=== PATIENT | female | born 1995 | race Caucasian/White ===

== ENCOUNTER 2019-12-17 11:15 | Outpatient (CLI) | payer MEDICAID, SELFPAY ==
--- NOTE | 2019-12-17 | US_ITS ---
WS: [id number] ULTRASOUND OB COMPLETE TECHNIQUE: Complete ultrasound. CLINICAL INFORMATION: CARE, 2ND TRIMESTER COMPARISON: September 14, 2019 FINDINGS: Cervix measures 5.5 cm Single interuterine gestation is identified with transverse presentation. Placenta is posterior. Placenta grade 0. Normal amniotic fluid volume. cardiac activity: 141 BPM. AGA: 20w0d JAY by ultrasound: 05/05/2020 Estimated weight: 341 g BDP: 4.4 cm = 19w3d HC: 17.1 cm = 19w5d AC: 15.1 cm = 20w2d FEMUR LENGTH: 3.3 cm = 20w2d Anatomic survey: Anatomic survey is normal. Normal stomach. Kidneys and bladder are normal. Normal 3 vessel cord. Norm al 3 vessel cord insertion. Normal 4 chamber heart. Normal spine. Intracranial contents are normal. N ormal posterior fossa and cisterna magna. US/US OB >= 14 weeks fetus [id number] IMPRESSION: 1. Single intrauterine with visualized cardiac activity. AGA 20 week s 0 days with JAY 05/05/2020. 2. Placenta is posterior. No evidence of abruption or previa. 3. anatomic survey is normal. 4. Normal amniotic fluid volume.
== END 2019-12-17 11:16 | disposition home or self-care (01) ==
LOC: RADOUTREAD 12-18 07:20
PROVIDERS: Family Provider Nurse Practitioner Family; PCP Nurse Practitioner Family; Visit Provider Family Medicine
DX: Z76.89 Persons encountering health services in other specified circumstances (principal)

== ENCOUNTER 2020-04-25 10:55 | Inpatient (IN) | payer MEDICAID, SELFPAY ==
[2020-04-25] VITALS (93 sets, daily range): BP systolic 0–122; BP diastolic 0–71; PULSE 77–191; TEMP 36.6–37; O2SAT 76–100; BMI 31.5
--- NOTE | 2020-04-25 11:05 | PC.NURSE ---
Pt arrived to floor from Dr Negrete office for evaluation and admit of ROM while at office. While pt at nurses station and being checked in per this nurse shortly after being asked address pt started taking off jacket and then fell to floor. This nurse quickly came around deck to evaluated pt and call for help. It was noticed that the pt had gum in her mouth and this nurse was asking pt to spit gum out so she would not become choked on it. Pt was noted to be breathing and moving but was not coherent, within a few seconds she started following commands and was alert. Pt denied hitting head or having pain from fall. After pt was alert she felt that she could safely walk to room with assistance. This nurse then assisted pt to room and to bed without difficulties. Pt was then given orange juice and a sandwich and stated that she was feeling much better.
[2020-04-25 12:12] LABS: Basophils % 0.3 %; Eosinophils # 0.2 10^3/uL (0.0-0.8); Eosinophils % 1.2 %; Hematocrit 31.9 % (37.0-47.0); Hemoglobin 10.2 g/dL (11.5-15.3); Lymphocytes # 2.6 10^3/uL (0.8-4.8); Lymphocytes % 19.3 %; Mean Corpuscular Volume 93.8 fL (81-99); Monocytes # 0.8 10^3/uL (0.2-0.9); Monocytes % 6.2 %; Neutrophils # 9.8 10^3/uL (1.8-7.7); Neutrophils % 72.6 %; Nucleated Red Blood Cells % 0 %; Platelet Count 203 10^3/cmm (130-400); Red Cell Distribution Width 13.3 % (12.1-15.1); White Blood Count 13.5 10^3/uL (4.0-10.0)
[2020-04-25] MEDS: dextrose 5%-lactated ringers 1,000 ML 125 ML IV (16:56)
[2020-04-25] MEDS: oxytocin 30 UNIT/500 ML BAG IV (17:05)
[2020-04-25] MEDS: lactated ringers 1,000 ML 999 ML IV ×3 (18:02→23:47)
--- NOTE | 2020-04-25 19:39 | ANES.PREANE2 ---
Pre-Anesthetic Assessment Pre-Anesthetic Assessment: Height/Weight: Height 1.55 m Weight 75.75 kg Temp Pulse BP Pulse Ox 98.3 F 101 H 109/40 99 04/25/20 15:30 04/25/20 19:36 04/25/20 19:36 04/25/20 19:34 Preop Diagnosis: IUP Proposed Procedure: MONICA Was Beta Bib taken within 24 hours: N/A (1200) Social: Social History: No alcohol and No tobacco Exam: Pre-Anes Outpt Exam: alert, oriented x 3, clear to auscultation bilaterally and regular rate & rhythm Airway: Submandibular: WNL Cervical ROM: WNL MP: 2 Dentition: Full History/ROS: No significant history except as noted and No significant complaints Pulmonary: Pulmonary: None reported CV/HEM: CV/HEM: None reported : : None reported Hepatic: Hepatic: None reported GI: GI: None reported Metabolic: Metabolic: None reported Musc/skel: Musc/skel: None reported Neuropsych: Neuropsych: None reported Anesthetic Plan: ASA status: 2 Anesthesia: Anesthesia Evaluation and Regional (specify below) Other: MONICA Risk of > 500 ml blood loss (7ml/kg in children): No Meds/Allergies Current Medications: Current Medications Generic Name Dose Route Start Last Admin Trade Name Freq PRN Reason Stop Dose Admin Dextrose/Lactated Ringer's 1,000 mls @ 125 m ls/hr 04/25/20 12:00 04/25/20 18:02 Dextrose 5%-Lact ated Ringers IV 0 mls/hr .Q8H SULMA Infusion Oxytocin 30 unit in 500 ml s @ 1 mls/hr 04/25/20 16:30 04/25/20 17:35 Pitocin IV 6 milliunit/min .Q24H SULMA 6 mls/hr Titration Protocol 1 MILLIUNIT/MIN Lactated Ringer's 1,000 mls @ 999 m ls/hr 04/25/20 17:39 04/25/20 19:09 Lactated Ringers IV 999 mls/hr .Q1H1M PRN Administration ANESTHESIA PFSH Anesthesia Female Reproductive History: : 5 Data Anesthesia CBC & Chem 7: 04/25/20 11:45 Other Labs: Laboratory Results - last 48 hr 04/25/20 11:45 WBC 13.5 H RBC 3.40 L Hgb 10.2 L Hct 31.9 L MCV 93.8 MCH 30.0 MCHC 32.0 RDW 13.3 Plt Count 203 MPV 11.0 H Neut % (Auto) 72.6 Lymph % (Auto) 19.3 Carroll % (Auto) 6.2 Eos % (Auto) 1.2 Baso % (Auto) 0.3 Neut # (Auto) 9.8 H Lymph # (Auto) 2.6 Carroll # (Auto) 0.8 Eos # (Auto) 0.2 Baso # (Auto) 0.0 Nucleated RBC % (auto) 0 Nucleated RBCs # 0.0 Cardiac Studies: No Data to Display
--- NOTE | 2020-04-25 19:41 | ANES.PROC ---
Anesthesia Procedures Procedure/Date: 04/25/20 MONICA Procedure Narrative: Epidural: Time Out Performed: Yes Consents Signed: Procedure Consent Consent: requested by attending/covering physician, from patient, risks and benefits reviewed and patient agrees to proceed Lumbar Level: L2-L3 Epidural position: sitting Epidural procedure: sterile prep of area, 1% lidocaine to numb the area, 18 g needle, neg for paresthesia, test dose given, 1.5% xylocaine 1:200k epi, 0.2% Ropivacaine bolus ml, placed PCEA, no systemic response, sterile dressing applied, L.U.D. no apparent complications and 0.2% Ropiavacaine @ mls/hr Additional Comments: RENAE at 6cm. Roiv 0.2% 5cc and Fent 100 mcg bolus
--- NOTE | 2020-04-25 20:52 | ANES.PROC ---
Anesthesia Procedures Procedure/Date: 04/25/20 Other Information: Ephedrine 50 mg IM right hip for recent occas BPs in 70s systolic. Epidural pump on hold for 30 minutes
--- NOTE | 2020-04-25 23:43 | PM.OBGYHP ---
Providers/Chief Complaint Admitting Physician: Peter Negrete MD Primary Care Provider: Derek Markham Chief Complaint: Rupture of membranes HPI FINGERNAIL SCULPTURER History of Present Illness Karen Steve is a 25 year old female 39-week multigravida female who presented to the hospital today with spontaneous rupture membranes. She was seen in my clinic today. And I checked her and stripped her membranes. Shortly after stripping her membranes. She did have spontaneous rupture of membranes. Meconium was noted. The patient has had a history of a . She desired a TOLAC. She presented to the hospital where a Winkler bulb was placed due to her unfavorable cervix. She was also ultimately placed on Pitocin. She progressed to 4 cm. The baby continued to have recurrent decelerations. As result an IUPC was placed. An amnioinfusion was performed. Despite these interventions, the baby continued to have decelerations, including late decelerations. As result of the patient's lack of cervical change, Present Details : 5 Para: 4 Labs Rubella: Immune RPR: Negative GBS: Negative Medications/Allergies Home Medications Medication Instructions Recorded Confirmed Last Taken Type URI427-ocllghe fumarate-FA 1 tab PO DAILY 04/25/20 04/25/20 04/25/20 06:00 History [] Allergies Allergy/AdvReac Type Severity Reaction Status Date / Time No Known Allergies Allergy Verified 04/25/20 19:30 Vitals/I&O/Wt Last Vital Signs Temp 98.3 F 04/25/20 15:30 Pulse 96 04/25/20 23:33 BP 0/0 04/25/20 23:41 Pulse Ox 76 L 04/25/20 21:23 04/25/20 04/25/20 04/26/20 14:59 22:59 06:59 Intake Total 1139.0 / 1139.0 Balance 1139.0 / 1139.0 Weight last 48 hrs Weight 167 lb Physical Exam Const: COMMON NORMALS: no acute distress and patient oriented x3 GENERAL APPEARANCE: cooperative, comfortable and well developed HENMT: COMMON NORMALS: normocephalic and moist oral mucous membranes HEAD & SCALP: normocephalic Chest: COMMONS NORMALS: normal inspection of the chest Resp: COMMON NORMALS: normal respiratory effort and clear to auscultation bilaterally AUSCULTATION: clear to auscultation bilaterally Cardio: COMMON NORMALS: regular rate, regular rhythm, No gallops present (Cardio), No murmurs present (Cardio) and No rub (Cardio) RATE: regular rate RHYTHM: regular rhythm Extremity: COMMON NORMALS: normal to inspection Neuro: COMMON NORMALS: patient oriented x3 and no focal motor deficits Skin: COMMON NORMALS: no rashes or lesions noted GENERAL SKIN EXAM: no rashes or lesions noted Urinary Catheter Management^: Winkler: Cath Placed During This Visit: yes Urinary Catheter Date of Insertion: 04/25/20 Urinary Catheter Time of Insertion: 20:30 Data : 04/25/20 11:45 A&P Assessment and plan (1) 39 weeks gestation of : Status: Acute (2) History of : Status: Acute (3) Failed trial of labor following previous , antepartum: We discussed the risks and alternatives. Given the recurrent decelerations of the 's heart tones, as well as the lack of progress, I discussed with them my feeling that the benefits of proceeding with a outweigh the risks. We discussed the risk of bleeding, infection, and damage to intra-abdominal organs. Both the patient and her had no further questions and were agreeable to proceed with a . Status: Acute (4) Non-reassuring heart tones complicating , antepartum: Status: Acute Attestations Medical Necessity Statement*: I anticipate routine and post care. Coding Level of Care Code Acute Center Machine Set Up Operator for Melly Fwd Diagnoses 39 weeks gestation of Z3A.39 History of Z98.891 Failed trial of labor following previous , antepartum O66.41 Non-reassuring heart tones complicating , antepartum O36.8390
[2020-04-25] MEDS: metoclopramide 5 mg/mL SDV 2 mL 10 MG IVP (23:46)
[2020-04-25] MEDS: famotidine 20 mg/2 mL INJ IVP (23:46)
[2020-04-25] MEDS: citric acid-sodium citrate 30 mL UDC PO (23:47)
[2020-04-26] VITALS (19 sets, daily range): BP systolic 61–116; BP diastolic 32–71; PULSE 109–135; RESP 16–20; TEMP 37–37.7; O2SAT 96–99
--- NOTE | 2020-04-26 01:01 | PM.OP ---
Operative Report Date of procedure: April 26, 2020 Pre-op Diagnosis: IUP, Nonreassuring heart tones Post-op diagnosis: same Procedure Done: Lower transverse section Specimens removed/disposition: Female with a weight of 4 pounds 13 ounces and Apgars of 9 and 9 Placenta with a three-vessel cord delivered intact Surgeon: Peter Negrete Anesthesia: Epidural Estimated blood loss (mL): 800 Disposition: floor Procedure: The patient was brought back to the operating room where she was prepped and draped in the usual sterile fashion. Anesthesia was found to be adequate. A lower transverse skin incision was then made with a #10 blade. I then dissected down to the underlying subcutaneous tissue until arriving at the prerectal fascia. The fascia was then nicked with the scalpel bilaterally. The fascial incisions were then carried laterally with Fritz scissors. Attention was then turned to the superior aspect of the incision which was grasped with kochers and tented up away from the underlying rectus abdominis muscles. The muscles were then dissected away from the fascia manually, and later with Fritz scissors. Attention was then turned to the inferior aspect of the incision, and the fascia was dissected away from the underlying muscle in similar fashion. The rectus abdominis muscles were then spread manually. The peritoneum was entered manually. Excellent visualization of the uterus was noted. A lower transverse uterine incision was then made with a #10 blade. Upon arriving at the intrauterine cavity, the uterine incision was then extended manually. The was noted to be in vertex position. The baby was delivered without difficulty. After delivery of the head, the mouth and nose were suctioned at the site of the incision. Thick meconium was noted. There was a body cord x1. The remainder of the body was then delivered and placed on the abdomen. The cord was cut and clamped. The baby was then handed to the waiting nurse. The placenta was removed intact. The uterus was externalized. The intrauterine cavity was cleansed of any remaining debris. The uterine incision was reapproximated in 2 layers. The first layer was performed with 0 Vicryl in a running locked stitch. The second layer was an imbricating stitch also using 0 Vicryl. The uterus was replaced into the abdomen. The peritoneum was then irrigated with warm saline. I reexamined the uterine incision and found it to be hemostatic. The rectus abdominis muscles were then reapproximated using 0 Vicryl in a running stitch. The fascia was then reapproximated using 0 Vicryl in running stitch. A subcutaneous running stitch was then performed with 0 Vicryl the skin was reapproximated using michael. A sterile dressing was placed. All counts were correct x2. Both the mother and baby were in stable condition.
[2020-04-26] MEDS: acetaminophen 325 mg Tablet 650 MG PO (04:22)
[2020-04-26] MEDS: sodium chloride 0.9% 1,000 ML 999 ML IV (04:22)
[2020-04-26] MEDS: ketorolac 30 mg/mL INJ IVP ×2 (06:08→10:04)
[2020-04-26] MEDS: diphenhydrAMINE 50 mg/mL SDV 1mL 25 MG IVP (06:34)
[2020-04-26 06:40] LABS: Basophils % 0.2 %; Eosinophils % 0.1 %; Lymphocytes # 0.9 10^3/uL (0.8-4.8); Lymphocytes % 5.6 %; Mean Corpuscular Hemoglobin 30.4 pg (28.0-34.0); Mean Corpuscular Volume 95.1 fL (81-99); Mean Platelet Volume 11.2 fL (7.4-10.4); Monocytes # 0.8 10^3/uL (0.2-0.9); Monocytes % 4.7 %; Neutrophils # 14.6 10^3/uL (1.8-7.7); Neutrophils % 88.9 %; Nucleated Red Blood Cells % 0 %; Platelet Count 142 10^3/cmm (130-400); Red Blood Count 2.63 10^6/uL (4.1-5.3); Red Cell Distribution Width 13.4 % (12.1-15.1); White Blood Count 16.5 10^3/uL (4.0-10.0)
[2020-04-26] MEDS: dextrose 5%-lactated ringers 1,000 ML 125 ML IV (08:30)
[2020-04-26] MEDS: lanolin oint 7 gm 1 APPLIC TOPICAL (10:03)
[2020-04-26] MEDS: ferrous sulfate EC 325 mg Tablet PO ×2 (10:03→17:16)
[2020-04-26] MEDS: prenatal vitamin Capsule 1 CAP PO (10:03)
[2020-04-26] MEDS: docusate sodium 100 mg Capsule PO ×2 (10:04→17:16)
[2020-04-26] MEDS: HYDROcodone-acetaminophen 5-325 mg Tablet PO ×2 (13:30→17:16)
[2020-04-26 15:28] LABS: Hematocrit 24.4 % (37.0-47.0); Hemoglobin 7.8 g/dL (11.5-15.3); Mean Corpuscular Hemoglobin 30.7 pg (28.0-34.0); Mean Corpuscular Volume 96.1 fL (81-99); Mean Platelet Volume 11.7 fL (7.4-10.4); Platelet Count 137 10^3/cmm (130-400); Red Blood Count 2.54 10^6/uL (4.1-5.3); Red Cell Distribution Width 13.6 % (12.1-15.1)
[2020-04-27] MEDS: HYDROcodone-acetaminophen 5-325 mg Tablet PO ×2 (00:57→08:39)
[2020-04-27 04:30] VITALS: BP 100/66; PULSE 108; RESP 18; TEMP 36.8
[2020-04-27 06:00] LABS: Hematocrit 25.7 % (37.0-47.0); Hemoglobin 8.2 g/dL (11.5-15.3); Mean Corpuscular HGB Conc 31.9 g/dL (30.0-36.0); Mean Corpuscular Hemoglobin 30.6 pg (28.0-34.0); Mean Corpuscular Volume 95.9 fL (81-99); Mean Platelet Volume 11.7 fL (7.4-10.4); Platelet Count 169 10^3/cmm (130-400); Red Blood Count 2.68 10^6/uL (4.1-5.3); Red Cell Distribution Width 13.7 % (12.1-15.1); White Blood Count 12.8 10^3/uL (4.0-10.0)
--- NOTE | 2020-04-27 06:48 | PM.OBGYDC ---
Discharge Providers SALES FLOOR ASSOCIATE Date of Admission: 04/25/20 10:55 Date of Discharge: 04/27/20 Attending Provider at Admission: Peter Negrete MD Attending Provider at Discharge: Peter Negrete MD Primary Care Provider: Derek Markham Diagnoses at Discharge Discharge Diagnosis (1) 39 weeks gestation of : Status: Acute (2) History of : Status: Acute (3) Failed trial of labor following previous , antepartum: Status: Acute (4) Non-reassuring heart tones complicating , antepartum: Status: Acute Reason for Visit Reason for Visit: Rupture of membranes Hospital Course Hospital Course: The patient is a 25-year-old multigravida female who presented to the hospital with spontaneous rupture of membranes at 39 weeks estimated gestational age. She attempted a . She was induced with a Winkler bulb which was then followed by Pitocin. She progressed to 4 cm. Her baby began having frequent late decelerations. A was performed. Her course was unremarkable. She had minimal bleeding. She breast-fed well. Her pain was well controlled. Information Peripartum Data: Infant Delivery Method: Section Physical Exam Narrative: EXAM NARRATIVE: and she was delivered per section.She is in no acute distress Lungs are clear auscultation bilaterally Her heart has a regular rate and rhythm Her fundus is below the umbilicus and firm Her dressing is clean, dry and intact Her extremities have trace edema Urinary Catheter Management^: Winkler: Cath Placed During This Visit: yes Reason for Continuing Indwelling Catheter: Perioperative Use in Selected Surgeries Urinary Catheter Date of Insertion: 04/25/20 Urinary Catheter Time of Insertion: 20:30 Discharge Data Data Completed and Pending: Pending at discharge Category Date Time Status CBC Manual Dif [C omplete Blood Coun t w/Man Dif] Routi ne Lab 04/27/20 04:40 Results Labs from last 24 hours 04/27/20 04/26/20 04:40 14:40 WBC 12.8 H 15.0 H RBC 2.68 L 2.54 L Hgb 8.2 L 7.8 L Hct 25.7 L 24.4 L MCV 95.9 96.1 MCH 30.6 30.7 MCHC 31.9 32.0 RDW 13.7 13.6 Plt Count 169 137 MPV 11.7 H 11.7 H Vitals: Last Vital Signs Temp 98.3 F 04/27/20 04:30 Pulse 108 H 04/27/20 04:30 Resp 18 04/27/20 04:30 BP 100/66 04/27/20 04:30 Pulse Ox 97 04/26/20 22:00 Discharge Plan Discharge Patient Disposition: Home, Self-Care Condition: Stable Prescriptions: New ibuprofen 800 mg Tablet 800 mg PO TID Qty: 45 RF: 0 hydrocodone-acetaminophen 5-325 mg Tablet 1 - 2 tab PO Q6H PRN (Reason: Moderate To Severe Pain) Qty: 30 RF: 0 Continued 28-800 mg-mcg Tablet 1 tab PO DAILY RF: 0 Discharge Orders: Discharge Order (Routine); Ordered 04/27/20 Ordered By: Peter Negrete Referrals: Peter Negrete MD [Physician] - 4-7 days (6 weeks for check as well) Discharge Diet: Usual diet Discharge Activity: Limit activity as instructed Discharge Attestations SALES FLOOR ASSOCIATE Time Spent in Discharge Care*: less than 30 min Coding Level of Care Code Acute Plant Sprayer for Chg Fwd Diagnoses 39 weeks gestation of Z3A.39 History of Z98.891 Failed trial of labor following previous , antepartum O66.41 Non-reassuring heart tones complicating , antepartum O36.8390
[2020-04-27 07:09] LABS: Absolute Segmented Neutrophil 11.2 10/cmm (1.6-7.1); Band Neutrophils Absolute 0.8 10^3/cmm (0.0-1.2); Lymphocytes 6 %; Platelet Estimate Normal (Normal); Segmented Neutrophils 88 %; Total Cells Counted 100 (0-100)
[2020-04-27] MEDS: prenatal vitamin Capsule 1 CAP PO (08:40)
[2020-04-27] MEDS: ferrous sulfate EC 325 mg Tablet PO (08:40)
[2020-04-27] MEDS: docusate sodium 100 mg Capsule PO (08:40)
[2020-04-27 10:45] VITALS: BP 94/48; PULSE 114; RESP 18; TEMP 37.2; O2SAT 94
--- NOTE | 2020-04-27 11:46 | ANE.PACU2 ---
Inpatient post-anesthesia follow up: Airway intact: Yes Vital signs: Temperature 98.9 F Pulse Rate 114 Respiratory Rate 18 Blood Pressure 94/48 Pulse Oximetry 94 Oxygen Delivery Me thod Room Air Oxygen Flow Rate Fraction of Inspir ed Oxygen Hydration adequate: Yes Nausea and vomiting: No Mental status: Baseline Additional Comments: no signs of infection at epidural site, no LE weakness, no headaches
== END 2020-04-27 13:00 | disposition home or self-care (01) | DRG 788 ==
PROVIDERS: Admitting Provider Family Medicine; Family Provider Nurse Practitioner Family; PCP Nurse Practitioner Family; Visit Provider Family Medicine
PROC: 10D00Z1 Extraction of Products of Conception, Low, Open Approach (ICD-10-PCS; CPT 59514; principal; 2020-04-26)
DX: O34.219 Maternal care for unspecified type scar from previous cesarean delivery (principal); Z3A.39 39 weeks gestation of pregnancy; Z37.0 Single live birth; O76 Abnormality in fetal heart rate and rhythm complicating labor and delivery; O66.41 Failed attempted vaginal birth after previous cesarean delivery; O69.2XX0 Labor and delivery complicated by other cord entanglement, with compression, not applicable or unspecified
CPT/HCPCS: 12345; 36415; 51702; 59025; 59409; 85007; 85025; 85027; 96375; 98960; 99211; G0378; J0690; J1200; J1885; J2765; J3490; J7030

== ENCOUNTER → 2021-10-11 10:27 | Outpatient (BNVA) | payer MEDICAID, SELFPAY | PROVIDERS: Family Provider Nurse Practitioner Family; PCP Nurse Practitioner Family; Visit Provider Registered Nurse | DX: N92.6 Irregular menstruation, unspecified (principal) | CPT/HCPCS: 81025 ==

== ENCOUNTER → 2022-12-11 11:09 | Outpatient (BNVA) | payer MEDICAID, SELFPAY | PROVIDERS: Family Provider Nurse Practitioner Family; PCP Nurse Practitioner Family; Visit Provider Nurse Practitioner Women's Health | DX: Z34.90 Encounter for supervision of normal pregnancy, unspecified, unspecified trimester (principal); Z78.9 Other specified health status | CPT/HCPCS: 81025; 84315; 84702 ==

== ENCOUNTER → 2022-12-27 11:08 | Outpatient (BNVA) | payer MEDICAID, SELFPAY | PROVIDERS: Family Provider Nurse Practitioner Family; PCP Nurse Practitioner Family; Visit Provider Obstetrics & Gynecology | DX: Z36.87 Encounter for antenatal screening for uncertain dates (principal) | CPT/HCPCS: 76801; 84315 ==

== ENCOUNTER → 2023-01-04 10:56 | Outpatient (BNVA) | payer MEDICAID, SELFPAY | PROVIDERS: Family Provider Nurse Practitioner Family; PCP Nurse Practitioner Family; Visit Provider Obstetrics & Gynecology | DX: O09.899 Supervision of other high risk pregnancies, unspecified trimester (principal); Z3A.00 Weeks of gestation of pregnancy not specified | CPT/HCPCS: 80307; 83036; 84315; 85027; 86592; 86762; 86803; 86850; 86900; 87086; 87340; 87806 ==

== ENCOUNTER → 2023-01-18 09:22 | Outpatient (BNVA) | payer MEDICAID, SELFPAY | PROVIDERS: Family Provider Nurse Practitioner Family; PCP Nurse Practitioner Family; Visit Provider Obstetrics & Gynecology | DX: O09.899 Supervision of other high risk pregnancies, unspecified trimester (principal); O34.219 Maternal care for unspecified type scar from previous cesarean delivery; Z3A.00 Weeks of gestation of pregnancy not specified | CPT/HCPCS: 84315; 86850; 86900; 87491; 87591; 87661; 88175 ==

== ENCOUNTER → 2023-03-11 13:20 | Outpatient (BNVA) | payer MEDICAID, SELFPAY | PROVIDERS: Family Provider Nurse Practitioner Family; PCP Nurse Practitioner Family; Visit Provider Obstetrics & Gynecology | DX: O34.219 Maternal care for unspecified type scar from previous cesarean delivery (principal); Z3A.20 20 weeks gestation of pregnancy | CPT/HCPCS: 76805 ==

== ENCOUNTER → 2023-03-15 09:00 | Outpatient (BNVA) | payer MEDICAID, SELFPAY | PROVIDERS: Family Provider Nurse Practitioner Family; PCP Nurse Practitioner Family; Visit Provider Obstetrics & Gynecology | DX: O09.899 Supervision of other high risk pregnancies, unspecified trimester (principal); N39.0 Urinary tract infection, site not specified; Z3A.00 Weeks of gestation of pregnancy not specified | CPT/HCPCS: 81000; 87086 ==

== ENCOUNTER → 2023-04-05 13:16 | Outpatient (BNVA) | payer MEDICAID, SELFPAY | PROVIDERS: Family Provider Nurse Practitioner Family; PCP Nurse Practitioner Family; Visit Provider Nurse Practitioner Women's Health | DX: O09.899 Supervision of other high risk pregnancies, unspecified trimester (principal) | CPT/HCPCS: 82950; 84315; 87086 ==

== ENCOUNTER → 2023-04-19 08:10 | Outpatient (BNVA) | payer MEDICAID, SELFPAY | PROVIDERS: Family Provider Nurse Practitioner Family; PCP Nurse Practitioner Family; Visit Provider Nurse Practitioner Women's Health | DX: O09.899 Supervision of other high risk pregnancies, unspecified trimester (principal) | CPT/HCPCS: 82951; 82952 ==

== ENCOUNTER → 2023-05-03 07:47 | Outpatient (BNVA) | payer MEDICAID, SELFPAY | PROVIDERS: Family Provider Nurse Practitioner Family; PCP Nurse Practitioner Family; Visit Provider Obstetrics & Gynecology | DX: O09.899 Supervision of other high risk pregnancies, unspecified trimester (principal); Z3A.28 28 weeks gestation of pregnancy | CPT/HCPCS: 84315; 85025 ==

== ENCOUNTER → 2023-05-20 13:05 | Outpatient (BNVA) | payer MEDICAID, SELFPAY | PROVIDERS: Family Provider Nurse Practitioner Family; PCP Nurse Practitioner Family; Visit Provider Obstetrics & Gynecology | DX: O09.899 Supervision of other high risk pregnancies, unspecified trimester (principal); R82.90 Unspecified abnormal findings in urine; Z3A.30 30 weeks gestation of pregnancy | CPT/HCPCS: 81000; 87086 ==

== ENCOUNTER → 2023-06-03 14:38 | Outpatient (BNVA) | payer MEDICAID, SELFPAY | PROVIDERS: Family Provider Nurse Practitioner Family; PCP Nurse Practitioner Family; Visit Provider Obstetrics & Gynecology | DX: O09.899 Supervision of other high risk pregnancies, unspecified trimester (principal); O99.013 Anemia complicating pregnancy, third trimester; Z3A.32 32 weeks gestation of pregnancy; D64.9 Anemia, unspecified | CPT/HCPCS: 81000 ==

== ENCOUNTER → 2023-06-18 13:21 | Outpatient (BNVA) | payer MEDICAID, SELFPAY | PROVIDERS: Family Provider Nurse Practitioner Family; PCP Nurse Practitioner Family; Visit Provider Nurse Practitioner Women's Health | DX: O09.899 Supervision of other high risk pregnancies, unspecified trimester (principal); O99.013 Anemia complicating pregnancy, third trimester; Z30.09 Encounter for other general counseling and advice on contraception; O34.219 Maternal care for unspecified type scar from previous cesarean delivery; O26.899 Other specified pregnancy related conditions, unspecified trimester; R12 Heartburn; O99.340 Other mental disorders complicating pregnancy, unspecified trimester; F41.9 Anxiety disorder, unspecified; Z28.39 Other underimmunization status; Z78.9 Other specified health status; Z3A.34 34 weeks gestation of pregnancy | CPT/HCPCS: 81000; 85027 ==

== ENCOUNTER 2023-07-04 08:00 | Oncology outpatient (recurring) (ONCR) | payer MEDICAID, SELFPAY ==
[2023-06-27 09:20] VITALS: BP 114/64; PULSE 68; RESP 18; TEMP 36.4; O2SAT 97
[2023-06-27] MEDS: sodium chloride 0.9% 250 ML 75 ML IV (09:40)
[2023-06-27 13:10] VITALS: BP 100/63; PULSE 86; RESP 18; TEMP 36.4; O2SAT 98
[2023-07-04 08:22] VITALS: BP 98/65; PULSE 112; RESP 18; TEMP 36.4; O2SAT 97
[2023-07-04] MEDS: sodium chloride 0.9% 250 ML 50 ML IV (08:55)
[2023-07-04] MEDS: iron sucrose 500 MG in sodium chloride 0.9% 250 ML 78 MG IV (08:56)
[2023-07-04 12:05] VITALS: BP 133/66; PULSE 107; RESP 19; TEMP 36.8; O2SAT 99
== END 2023-07-25 23:59 | disposition home or self-care (01) ==
PROVIDERS: PCP Nurse Practitioner Family; Visit Provider Nurse Practitioner Women's Health
DX: O99.013 Anemia complicating pregnancy, third trimester (principal); Z3A.35 35 weeks gestation of pregnancy
CPT/HCPCS: 76816; 81000; 87081; 96365; 96366; J1756; J7050

== ENCOUNTER → 2023-07-08 13:35 | Outpatient (BNVA) | payer MEDICAID, SELFPAY | PROVIDERS: PCP Nurse Practitioner Family; Visit Provider Obstetrics & Gynecology | DX: O09.899 Supervision of other high risk pregnancies, unspecified trimester (principal); Z3A.37 37 weeks gestation of pregnancy | CPT/HCPCS: 81000 ==

== ENCOUNTER → 2023-07-15 11:07 | Outpatient (BNVA) | payer MEDICAID, SELFPAY | PROVIDERS: PCP Nurse Practitioner Family; Visit Provider Obstetrics & Gynecology | DX: O09.899 Supervision of other high risk pregnancies, unspecified trimester (principal); Z3A.38 38 weeks gestation of pregnancy | CPT/HCPCS: 81000 ==

== ENCOUNTER → 2023-07-22 13:39 | Outpatient (BNVA) | payer MEDICAID, SELFPAY | PROVIDERS: PCP Nurse Practitioner Family; Visit Provider Obstetrics & Gynecology | DX: O09.899 Supervision of other high risk pregnancies, unspecified trimester (principal); Z3A.39 39 weeks gestation of pregnancy | CPT/HCPCS: 81000 ==

== ENCOUNTER 2023-07-24 05:57 | Inpatient (IN) | payer MEDICAID, SELFPAY ==
--- NOTE | 2023-07-15 10:08 | P.ANESASSM_ITS ---
Pre-Anesthetic Assessment Height/Weight: Height 1.57 m Operation Date: 07/24/23 07:20 Proposed Procedures p Repeat section 77580, Bilateral tubal 06541,O34.219, Z30.2(Bilateral) - Benito Patel MD Familial anesthetic complications: none Was Beta Bib taken within 24 hours: N/A Was Clonidine taken within 24 hours: N/A Social No alcohol and No tobacco Exam alert, oriented x 3, clear to auscultation bilaterally and regular rate & rhythm Airway Submandibular: within normal limits Cervical ROM: within normal limits Mallampati: Class II CV/HEM Anemia Neuropsych Anxiety Anesthetic Plan ASA status: 2 Anesthesia: Regional (specify below) (SAB) Medications/Allergies Home Medications Medication Instructions Recorded Confirmed Last Taken Type prenat.vits,jon,anj-povi-qlnqn 1 tab PO DAILY 12/11/22 07/08/23 Unknown History famotidine 20 mg tablet (Pepcid) 20 mg PO BID #60 tabs 04/05/23 07/08/23 Unknown Rx ferrous sulfate 325 mg (65 mg 325 mg PO BID Anemia 30 days #60 06/03/23 07/08/23 Unknown Rx iron) tablet tabs buspirone 10 mg tablet 10 mg PO BID #60 tabs 07/11/23 Unknown Rx Allergies Allergy/AdvReac Type Severity Reaction Status Date / Time No Known Allergies Allergy Verified 07/08/23 13:45 [facility] Anesthesia Medical History No pertinent past medical history neghx: htn,dm,thyroid,dvt/pe PCP: Iva Meza Surgical History H/O section 1)--2018: Primary ; FTP. [place] 2)--2020: Failed ; [place] Family History Mother Breast cancer, Onset Age: 34 possibly not cancer Hypertension Father Diabetes Denies family history of Colon cancer Ovarian cancer Heart disease Family history of thyroid problem Uterine cancer Stroke Hyperchloremia Data Anesthesia Cardiac Studies: No Data to Display
[2023-07-24] VITALS (134 sets, daily range): BP systolic 90–133; BP diastolic 36–96; PULSE 62–124; RESP 16–17; TEMP 36.3–36.7; O2SAT 94–100; BMI 32.1
--- NOTE | 2023-07-24 06:27 | P.ANESASSM_ITS ---
Pre-Anesthetic Assessment Height/Weight: Height 1.57 m Resp 17 07/24/23 06:17 Preop Diagnosis: Repeat Operation Date: 07/24/23 07:20 Proposed Procedures p Repeat section 89089, Bilateral tubal 70373,O34.219, Z30.2(Bilateral) - Benito Patel MD Familial anesthetic complications: None Was Beta Bib taken within 24 hours: N/A Was Clonidine taken within 24 hours: N/A Last intake: 07/24/23 Last Intake: 03:00 Social No alcohol and No tobacco Exam alert Airway Submandibular: within normal limits Cervical ROM: within normal limits Mallampati: Class IV Dentition: partials (bottom) History/ROS No significant history except as noted and No significant complaints Pulmonary Sleep Apnea CV/HEM Anemia None reported Hepatic None reported GI Gastroesophageal Reflux Disease GERD during Metabolic None reported Musc/skel None reported Neuropsych Anxiety Anesthetic Plan ASA status: 2 Anesthesia: Anesthesia Evaluation, General and Regional (specify below) (SAB) Risk of > 500 ml blood loss (7ml/kg in children): Yes, adequate IV access and fluids planned Medications/Allergies Home Medications Medication Instructions Recorded Confirmed Last Taken Type prenat.vits,jon,gth-gdyg-fqzay 1 tab PO DAILY 12/11/22 07/22/23 Unknown History famotidine 20 mg tablet (Pepcid) 20 mg PO BID #60 tabs 04/05/23 07/22/23 Unknown Rx ferrous sulfate 325 mg (65 mg 325 mg PO BID Anemia 30 days #60 06/03/23 07/22/23 Unknown Rx iron) tablet tabs buspirone 10 mg tablet 10 mg PO BID #60 tabs 07/11/23 07/22/23 Unknown Rx Allergies Allergy/AdvReac Type Severity Reaction Status Date / Time No Known Allergies Allergy Verified 07/22/23 13:54 [facility] Anesthesia Medical History No pertinent past medical history neghx: htn,dm,thyroid,dvt/pe PCP: Iva Meza Surgical History H/O section 1)--2018: Primary ; FTP. [place] 2)--2020: Failed ; [place] Family History Mother Breast cancer, Onset Age: 34 possibly not cancer Hypertension Father Diabetes Denies family history of Colon cancer Ovarian cancer Heart disease Family history of thyroid problem Uterine cancer Stroke Hyperchloremia Data Anesthesia Cardiac Studies: No Data to Display
[2023-07-24 06:38] LABS: Basophils % 0.2 %; Eosinophils # 0.1 10^3/uL (0.0-0.8); Eosinophils % 1.2 %; Hematocrit 35.9 % (36-47); Lymphocytes # 2.2 10^3/uL (0.8-4.8); Lymphocytes % 22.9 %; Mean Corpuscular HGB Conc 33.4 g/dL (30-55); Mean Corpuscular Volume 92.8 fl (85-98); Mean Platelet Volume 10.9 fL (7.4-10.4); Monocytes # 0.8 10^3/uL (0.2-0.9); Monocytes % 8.4 %; Neutrophils # 6.49 10^3/uL (1.8-7.7); Neutrophils % 66.9 %; Nucleated Red Blood Cells % 0 %; Platelet Count 143 10^3/cmm (157-399); Red Blood Count 3.87 10^6/uL (3.85-5.65); Red Cell Distribution Width 15.6 % (12.1-15.1); White Blood Count 9.72 10^3/uL (3.29-11.43)
[2023-07-24] MEDS: lactated ringers 1,000 ML 999 ML IV (06:52)
[2023-07-24] MEDS: ceFAZolin 2,000 MG in sodium chloride 0.9% (plus) 50 ML 100 MG IV (06:55)
[2023-07-24] MEDS: citric acid-sodium citrate 30 mL UDC PO (07:09)
[2023-07-24] MEDS: famotidine 20 mg/2 mL INJ IVP (07:09)
[2023-07-24] MEDS: metoclopramide 5 mg/mL SDV 2 mL 10 MG IVP (07:09)
--- NOTE | 2023-07-24 07:25 | W.PM.OPSUD ---
Surgery/Procedure H&P Update DATE OF PROCEDURE: July 24, 2023 DATE H&P PERFORMED: 07/22/23 H&P UPDATE INFORMATION: I have reviewed H&P completed within last 30 days, I have examined patient prior to procedure and No changes to prior documentation PREOP DIAGNOSIS: Repeat PLANNED PROCEDURE: Operation Date: 07/24/23 07:20 Proposed Procedures p Repeat section 91900, Bilateral tubal 51728,O34.219, Z30.2(Bilateral) - Benito Patel MD
--- NOTE | 2023-07-24 09:00 | ANE.PACU2 ---
Inpatient post-anesthesia follow up: Airway intact: Yes Vital signs: Temperature 97.3 F Pulse Rate 102 Respiratory Rate 17 Blood Pressure 104/67 Pulse Oximetry 99 Oxygen Delivery Me thod Room Air Oxygen Flow Rate Fraction of Inspir ed Oxygen Hydration adequate: Yes Nausea and vomiting: No Pain level: 1 Mental status: Baseline
--- NOTE | 2023-07-24 10:12 | PM.OP ---
Operative Report Date of procedure: July 24, 2023 Pre-op diagnosis: Preop Diagnosis Repeat , desires permanent sterilization Post-op diagnosis: Same as above Procedure done: Repeat low-transverse delivery. Bilateral partial salpingectomy Specimens removed/disposition: Left and right fallopian tube segments Surgeon: Benito Patel MD Estimated blood loss (mL): 800 Urine output (mL): 25 Complications: None Procedure: After assuring informed consent, the patient was taken to the operating room and anesthesia was initiated. She was placed in the dorsal supine position with a left lateral tilt. The abdomen was prepped and draped in the usual sterile manner. A time-out procedure was performed. Preop antibiotics was administered. A Pfannenstiel skin incision was made with the scalpel and carried through to the underlying layer of fascia with the Bovie. The fascia was nicked in the midline and the incision extended laterally with the Fritz scissors. The superior aspect of the fascial incision was then grasped with Jania clamps and elevated and the underlying rectus muscle dissected off bluntly and sharp with fritz scissors dense adhesions. Attention was then turned to the inferior aspect of the incision which, in similar fashion, was grasped and tented up with Jania clamps and the rectus muscle dissected bluntly. The rectus muscles were then in the midline and the peritoneum identified, tented up and entered sharply with Metzenbaum scissors. The peritoneal incision was then extended superiorly and inferiorly with good visualization of the bladder. The Peter O retractor was then inserted and the vesicouterine peritoneum identified, grasped with pickups and entered sharply with Metzenbaum scissors. This incision was then extended laterally and the bladder flap created digitally. The uterus incised in a low transverse fashion with the scalpel. The uterine incision was then extended with the bandage scissors. The infant was then delivered in the cephalic presentation atraumatically with 1 nuchal cord. The nose and the mouth were suctioned with bulb and the cord clamped and cut. The cord was normal and had three vessels. Amniotic fluid was clear. The placenta was then removed manually and the uterus exteriorized and cleared of all clots and debris. The uterine incision was repaired with 0 Vicryl in a running-locked fashion. A second layer of the same suture was used to obtain excellent hemostasis. The gutters were cleared of all clots. The left fallopian tube was identified and grasped with a Dodie clamp. The tube was then followed out to the fimbria. An avascular midsection of the fallopian tube was grasped with a Dodie clamp and the tube was grasped sealed and transected with the fine Ligesure device and the mid section of the tube was removed. The specimen was sent to pathology. Excellent hemostasis was noted. The same procedure was performed on the opposite fallopian tube. The uterus was then returned to the abdomen. The rectus muscles were approximated with 3-0 chromic gut. The adipose tissue was infiltrated with Exparell for pain management. The fascia was reapproximated with 0 Vicryl CTX-B in an mid lock running fashion. The skin was closed with Insorb?s subcuticular absorbable michael. The patient tolerated the procedure well. The sponge, lap and needle counts were correct times three.
[2023-07-24] MEDS: ondansetron 2 mg/ML SDV 2 mL 4 MG IVP (10:46)
[2023-07-24] MEDS: dextrose 5%-lactated ringers 1,000 ML 125 ML IV (10:48)
[2023-07-24] MEDS: ketorolac 30 mg/mL INJ IVP ×3 (11:22→23:31)
[2023-07-24] MEDS: diphenhydrAMINE 50 mg/mL SDV 1mL 25 MG IVP (13:10)
[2023-07-24] MEDS: ferrous sulfate EC 325 mg Tablet PO (18:32)
[2023-07-24] MEDS: docusate sodium 100 mg Capsule PO (18:32)
[2023-07-24] MEDS: hyDROXYzine 25 mg Capsule 50 MG PO (19:52)
[2023-07-24] MEDS: simethicone 80 mg Chew PO (19:52)
[2023-07-24 20:38] LABS: Hematocrit 30.4 % (36-47); Mean Corpuscular HGB Conc 33.6 g/dL (30-55); Mean Corpuscular Hemoglobin 31.1 pg (27-33); Mean Corpuscular Volume 92.7 fl (85-98); Mean Platelet Volume 11.1 fL (7.4-10.4); Platelet Count 146 10^3/cmm (157-399); Red Blood Count 3.28 10^6/uL (3.85-5.65); Red Cell Distribution Width 15.4 % (12.1-15.1); White Blood Count 11.55 10^3/uL (3.29-11.43)
[2023-07-25] VITALS (11 sets, daily range): BP systolic 92–106; BP diastolic 49–59; PULSE 74–104; RESP 18; TEMP 36.2–36.5; O2SAT 98
[2023-07-25] MEDS: HYDROcodone-acetaminophen 5-325 mg Tablet PO ×4 (00:42→20:16)
[2023-07-25] MEDS: ketorolac 30 mg/mL INJ IVP (05:57)
--- NOTE | 2023-07-25 07:00 | P.PN_ITS ---
Subjective Subjective: Mrs. Slater 28-year-old female status post repeat low-transverse delivery and bilateral partial salpingectomy postoperative day 1. Vitals/I&O/Wt Last Vital Signs Temp 97.7 F 07/25/23 21:31 Pulse 80 07/25/23 21:31 Resp 18 07/25/23 05:59 BP 103/58 07/25/23 21:31 Pulse Ox 98 07/25/23 05:59 O2 Del Method Room Air 07/25/23 06:17 Weight last 48 hrs Weight 79.832 kg Physical Exam Narrative: GA: Alert and oriented ?3. HEENT: WNL. Heart: Regular rate and rhythm. Lungs: Clear to auscultation bilaterally. Abdomen: Bowel sounds present, nontender, minimal tenderness, incision clean and dry, no redness, pain or edema. 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 Extremities: No edema, no cyanosis, no calves pain. Urinary Catheter Management: Winkler: Cath Placed During This Visit: yes, but has since been removed by the nurse Reason for Continuing Indwelling Catheter: Decision to DC Catheter Urinary Catheter Date of Insertion: 07/24/23 Urinary Catheter Time of Insertion: 07:48 Date Urinary Catheter Removed: 07/24/23 Time Urinary Catheter Discontinued: 18:25 Data 07/24/23 20:30 A&P Assessment and plan (1) Status post delivery: Mrs. Slater 28-year-old female status post repeat low-transverse delivery and bilateral partial salpingectomy postoperative day 1. Afebrile and hemodynamically stable. Tolerating diet well. Ambulating without difficulty. Pain under control. Breast-feeding without difficulty. Plan Continue postop observation Attestations Medical Necessity Statement*: In my professional opinion poor admitting diagnosis Coding Level of Care Code Acute Code for Chg Fwd Diagnoses Status post delivery Z98.891
[2023-07-25] MEDS: docusate sodium 100 mg Capsule PO ×2 (08:55→20:16)
[2023-07-25] MEDS: prenatal vitamin Capsule 1 CAP PO (08:55)
[2023-07-25] MEDS: ibuprofen 800 mg tablet PO ×2 (14:32→20:16)
[2023-07-25] MEDS: lanolin oint 7 gm 1 APPLIC TOPICAL (14:33)
[2023-07-25] MEDS: simethicone 80 mg Chew PO (16:06)
[2023-07-25] MEDS: ferrous sulfate EC 325 mg Tablet PO (20:15)
[2023-07-26] MEDS: HYDROcodone-acetaminophen 5-325 mg Tablet PO ×2 (00:16→06:22)
[2023-07-26 06:22] VITALS: BP 117/57; PULSE 84
[2023-07-26 06:23] VITALS: TEMP 36.6
--- NOTE | 2023-07-26 07:25 | P.DS_ITS ---
Discharge Providers TELLERS SUPERVISOR Date of Admission: 07/24/23 05:57 Date of Discharge: 07/26/23 Attending Provider at Admission: Benito Patel MD Attending Provider at Discharge: Benito Patel MD Primary TELLERS SUPERVISOR: Benito Patel MD Primary Care Provider: Derek Markham Diagnoses at Discharge Discharge Diagnosis (1) Status post delivery: Status: Acute Reason for Visit Reason for Visit: 44929, 84283, O34.219, Z30.2 Brief History: Ms. Steve is a 27 year old established patient with unknown LMP and JAY of 07/26/2023 based off of 9 week ultrasound. With previous delivery and desires permanent sterilization. Hospital Course Hospital Course Mrs. Slater 28-year-old female with term admitted for planned repeat delivery and permanent sterilization. The repeat low-transverse delivery and bilateral partial salpingectomy were performed without complications. Postoperative observation was uneventful. She is afebrile h emodynamically stable postoperative day 2. Tolerating diet well. Ambulating without difficulty. Patient was counseled regarding pelvic rest for 6 weeks (no sex, no tampons, no vaginal douches). Return to the emergency room if any fever, increased bleeding or pain. Information Peripartum Data: Infant Delivery Method: Physical Exam Narrative: GA; alert and oriented x 3 HEENT: normal Breasts: engorged Nipples - skin intact Lungs; clear to auscultation Heart: regular rhythm, no murmurs. Abd: Appropriately tender. BS+. Uterine fundus below umbilicus. No Fundal Tenderness. incision clean and spotting, no redness, pain or edema. Perineum: normal lochia. Extremities: no edema, no cyanosis, no tenderness. Urinary Catheter Management: Winkler: Cath Placed During This Visit: yes, but has since been removed by the nurse Reason for Continuing Indwelling Catheter: Decision to DC Catheter Urinary Catheter Date of Insertion: 07/24/23 Urinary Catheter Time of Insertion: 07:48 Date Urinary Catheter Removed: 07/24/23 Time Urinary Catheter Discontinued: 18:25 History History History 6 Term 5 0 Miscarriages/Ectopic 0 Living Children 5 Discharge Data Studies Completed and Pending Pending at discharge Category Date Time Status Pathology: Surgical [PTH] Routine Pth 07/24/23 14:46 Received Laboratory Results WBC 11.55 10^3/uL (3.29-11.43) H 07/24/23 20:30 RBC 3.28 10^6/uL (3.85-5.65) L 07/24/23 20:30 Hgb 10.20 g/dL (11.27-16.99) L 07/24/23 20:30 Hct 30.4 % (36-47) L 07/24/23 20:30 MCV 92.7 fl (85-98) 07/24/23 20:30 MCH 31.1 pg (27-33) 07/24/23 20:30 MCHC 33.6 g/dL (30-55) 07/24/23 20:30 RDW 15.4 % (12.1-15.1) H 07/24/23 20:30 Plt Count 146 10^3/cmm (157-399) L 07/24/23 20:30 MPV 11.1 fL (7.4-10.4) H 07/24/23 20:30 Neut % (Auto) 66.9 % 07/24/23 06:20 Lymph % (Auto) 22.9 % 07/24/23 06:20 [place] % (Auto) 8.4 % 07/24/23 06:20 Eos % (Auto) 1.2 % 07/24/23 06:20 Baso % (Auto) 0.2 % 07/24/23 06:20 Neut # (Auto) 6.49 10^3/uL (1.8-7.7) 07/24/23 06:20 Lymph # (Auto) 2.2 10^3/uL (0.8-4.8) 07/24/23 06:20 [place] # (Auto) 0.8 10^3/uL (0.2-0.9) 07/24/23 06:20 Eos # (Auto) 0.1 10^3/uL (0.0-0.8) 07/24/23 06:20 Baso # (Auto) 0.0 10^3/uL (0.0-0.1) 07/24/23 06:20 Nucleated RBC % (auto) 0 % 07/24/23 06:20 Nucleated RBCs # 0.0 /100WBC 07/24/23 06:20 Blood Type A Positive 07/24/23 06:20 Rho(D) Type Positive 07/24/23 06:20 Antibody Screen Negative 07/24/23 06:20 Vitals Last Vital Signs Temp 97.9 F 07/26/23 06:23 Pulse 84 07/26/23 06:22 Resp 18 07/25/23 05:59 BP 117/57 07/26/23 06:22 Pulse Ox 98 07/25/23 05:59 O2 Del Method Room Air 07/26/23 06:00 Discharge Plan Discharge Patient Disposition: Home Condition: Stable Prescriptions: New hydrocodone-acetaminophen 5-325 mg tablet 1 tab PO Q4H PRN (Reason: pain) Qty: 20 0RF acetaminophen 325 mg capsule 325 mg PO Q4H PRN (Reason: fever or pain) Qty: 60 0RF docusate sodium [Colace] 100 mg capsule 100 mg PO BID Qty: 60 0RF ferrous sulfate [Iron (ferrous sulfate)] 325 mg (65 mg iron) tablet 325 mg PO BID Qty: 60 0RF ibuprofen 800 mg tablet 800 mg PO TID PRN (Reason: pain) Qty: 60 0RF Continued prenat.vits,jon,[id number] Tablet 1 tab PO DAILY buspirone 10 mg tablet 10 mg PO BID Qty: 60 1RF Discharge Orders: Discharge Order (Routine); Ordered 07/26/23 Ordered By: Benito Patle Referrals: Benito Patel MD [Physician] - 2 weeks Discharge Diet: Usual diet Discharge Activity: Limit activity as instructed Patient Instructions: Female Sterilization, Caring for Your Baby (GEN), TTN (Transient Tachypnea of ) (IP), Your [place]'s Appearance (GEN), C- Section (GEN), Salpingectomy (GEN), Tubal Ligation (GEN), Opioid Safety Activity Restrictions/Additional Instructions: 1. Please call [facility] on next working day to make your post-operative appointment in 2 weeks. 2. Please stay home until you come back to the clinic on first post- hospatilization check up. 3. Please follow instructions on your medications CAREFULLY. 4. If you have abdominal incision, do not cover it unless dressing is necessary because of drainage. OK to shower, but avoid bath. Leave steri-strips until they fall off. If they are still on one week after surgery, you may remove them. 5. If you had vaginal surgery or vaginal repair, Dr. Patel may instruct you to take SITZ bath. 6. Yellow, blood tinged odorous vaginal discharge is usually normal after hysterectomy or vaginal surgeries. 7. No SEXUAL INTERCOURSE, tampons, or douches until you are completely released from the post-operative care. 8. Avoid constipation by eating right and maybe using some Metamucil or Milk of Magnesia. 9. All prescription refills are given during the working hours. Please do no wait till it runs out. Call the clinic at [phone] before your medication runs out. The clinic will get in touch with your doctor to prescribe medications if necessary. 10. Please remain within 40 mile radius from our hospital because emergencies do happen now and then during the post-operative period. 11. If you have stairs at home, take one step at a time slowly and minimize the number of trips. It helps to stay in one floor for the next few days. No lifting except what you can lift by one hand until you are released from the post-operative care. 12. Driving is discouraged until you are well healed. It may be 3-4 weeks before you feel strong enough to drive. You should be able to turn and look through the rear window without pain and you should be able to push the brake pedal very hard without pain before you drive. No fast rules, but SAFETY should be your primary concern. DO NOT drive if you are on sedating medications such as narcotics. 13. Call the clinic (during working hours) to make urgent appointment or go to the Emergency room, if any of the following occurs: i. Vaginal bleeding becomes heavy, more than a period. ii. Incision becomes red and sore, or drains pus. iii. Your TEMPERATURE is over 100.4F or you have chill. iv. IV site becomes red and swollen (a little ``knot?? is usually OK) v. Persistent nausea and vomiting vi. Persistent constipation or diarrhea vii. Rash or allergic reaction to medications. Discharge Attestations TELLERS SUPERVISOR Time Spent in Discharge Care*: greater than 30 min Coding Level of Care Code Acute Code for Chg Fwd Diagnoses Status post delivery Z98.891
[2023-07-26] MEDS: ibuprofen 800 mg tablet PO (09:10)
[2023-07-26] MEDS: ferrous sulfate EC 325 mg Tablet PO (09:10)
[2023-07-26] MEDS: docusate sodium 100 mg Capsule PO (09:10)
[2023-07-26] MEDS: prenatal vitamin Capsule 1 CAP PO (09:10)
[2023-07-26 10:20] VITALS: BP 120/64; PULSE 91; RESP 16; TEMP 36.1
[2023-07-26 10:21] VITALS: BP 120/64; PULSE 91; TEMP 36.1
[2023-07-26] MEDS: measles,mumps,rubella pf Vial (w/diluent) 0.5 ML SUBCUT (10:26)
== END 2023-07-26 10:30 | disposition home or self-care (01) | DRG 785 ==
PROVIDERS: Admitting Provider Obstetrics & Gynecology; PCP Nurse Practitioner Family; Visit Provider Obstetrics & Gynecology
PROC: (CPT 59514; principal; 2023-07-24 07:00)
DX: O34.211 Maternal care for low transverse scar from previous cesarean delivery (principal); N85.8 Other specified noninflammatory disorders of uterus; O99.344 Other mental disorders complicating childbirth; O99.02 Anemia complicating childbirth; Z3A.00 Weeks of gestation of pregnancy not specified; Z37.0 Single live birth; O69.81X0 Labor and delivery complicated by cord around neck, without compression, not applicable or unspecified; Z3A.39 39 weeks gestation of pregnancy; F41.9 Anxiety disorder, unspecified; D64.9 Anemia, unspecified; Z30.2 Encounter for sterilization
CPT/HCPCS: 36415; 51702; 58611; 59025; 59409; 85025; 85027; 86850; 86900; 88302; 90707; 96372; 96374; 96376; C9290; J0690; J1200; J1885; J2274; J2371; J2405; J2765; J3010; J3490; J7120; J7121

== ENCOUNTER → 2025-04-12 15:10 | Outpatient (BNVA) | payer MEDICAID, SELFPAY | PROVIDERS: PCP Nurse Practitioner Family; Visit Provider Obstetrics & Gynecology | DX: N92.6 Irregular menstruation, unspecified (principal) | CPT/HCPCS: 76830 ==

== ENCOUNTER → 2025-07-28 14:26 | Outpatient (BNVA) | payer MEDICAID, SELFPAY | PROVIDERS: PCP Nurse Practitioner Family; Visit Provider Nurse Practitioner Women's Health | DX: N64.3 Galactorrhea not associated with childbirth (principal); Z32.01 Encounter for pregnancy test, result positive | CPT/HCPCS: 80053; 84146; 84443; 84702 ==

== ENCOUNTER 2025-08-09 13:32 | Outpatient (CLI) | payer MEDICAID, SELFPAY ==
--- NOTE | 2025-08-09 14:00 | MM_ITS ---
WS: [id number] BILATERAL 3D TOMOSYNTHESIS DIGITAL DIAGNOSTIC MAMMOGRAPHY WITH CAD CLINICAL INFORMATION: N64.9 - Disorder of breast, unspecified HISTORY: Breast discharge COMPARISON: None. TECHNIQUE: Bilateral CC, MLO, and ML views. FINDINGS: Scattered fibroglandular densities bilaterally. No suspicious subareolar lesions. Ultrasound is pending. ULTRASOUND BREAST BILATERAL TECHNIQUE: Ultrasound bilateral breast focused area of concern. CLINICAL INFORMATION: N64.9 - Disorder of breast, unspecified FINDINGS: RIGHT BREAST: Ultrasound subareolar. No suspicious cystic or solid lesions. LEFT BREAST: Ultrasound subareolar. Incidental ductal ectasia. No suspicious cystic or solid lesions. MM/MM diag tomosynthesis [id number] IMPRESSION: DENSITY: There are scattered areas of fibroglandular density. BI-RADS: 2 - Benign. FOLLOW UP: Age 40 Recommend annual screening mammography age 40
--- NOTE | 2025-08-09 14:30 | US_ITS ---
WS: [id number] BILATERAL 3D TOMOSYNTHESIS DIGITAL DIAGNOSTIC MAMMOGRAPHY WITH CAD CLINICAL INFORMATION: N64.9 - Disorder of breast, unspecified HISTORY: Breast discharge COMPARISON: None. TECHNIQUE: Bilateral CC, MLO, and ML views. FINDINGS: Scattered fibroglandular densities bilaterally. No suspicious subareolar lesions. Ultrasound is pending. ULTRASOUND BREAST BILATERAL TECHNIQUE: Ultrasound bilateral breast focused area of concern. CLINICAL INFORMATION: N64.9 - Disorder of breast, unspecified FINDINGS: RIGHT BREAST: Ultrasound subareolar. No suspicious cystic or solid lesions. LEFT BREAST: Ultrasound subareolar. Incidental ductal ectasia. No suspicious cystic or solid lesions. US/US breast BI limited* [id number] IMPRESSION: DENSITY: There are scattered areas of fibroglandular density. BI-RADS: 2 - Benign. FOLLOW UP: Age 39 Recommend annual screening mammography age 40
== END 2025-08-09 13:33 | disposition home or self-care (01) ==
LOC: RAD 13:33
PROVIDERS: PCP Nurse Practitioner Family; Visit Provider Nurse Practitioner Women's Health
DX: N64.9 Disorder of breast, unspecified (principal); R92.323 Mammographic fibroglandular density, bilateral breasts; N60.42 Mammary duct ectasia of left breast
CPT/HCPCS: 76642; 77062; G0279

== ENCOUNTER 2025-09-24 13:17 | Outpatient (CLI) | payer MEDICAID, SELFPAY ==
[2025-09-24 13:35] LABS: Hematocrit 39.0 % (36-47); Hemoglobin 13.00 g/dL (11.27-16.99); Mean Corpuscular HGB Conc 33.3 g/dL (30-55); Mean Corpuscular Hemoglobin 29.7 pg (27-33); Mean Corpuscular Volume 89.0 fl (85-98); Nucleated Red Blood Cells % 0 %; Platelet Count 263 10^3/cmm (157-399); Red Blood Count 4.38 10^6/uL (3.85-5.65); White Blood Count 8.22 10^3/uL (3.29-11.43)
[2025-09-24 14:06] LABS: Alanine Aminotransferase 25 U/L (0-33); Albumin Level 4.5 g/dL (3.5-5.2); Alkaline Phosphatase 77 U/L (35-105); Anion Gap 18.0 (5-19); Aspartate Amino Transferase 20 U/L (0-32); Blood Urea Nitrogen 11 mg/dL (6-20); Calcium 9.6 mg/dL (8.5-10.5); Carbon Dioxide 24 mmol/L (22-29); Chloride 103 mmol/L (98-107); Free T4 Free Thyroxine 0.88 ng/dL (0.82-1.77); Globulin 2.9 g/dL (1.3-4.6); Glucose 85 mg/dL (65-115); Osmolality Calculated 291 mOsm/kg (285-295); Potassium 4.0 mmol/L (3.5-5.1); Sodium 141 mmol/L (136-145); Total Protein 7.4 g/dL (6.6-8.7)
== END 2025-09-24 13:18 | disposition home or self-care (01) ==
LOC: LAB 13:18
PROVIDERS: PCP Nurse Practitioner Family; Visit Provider Nurse Practitioner Family
DX: L29.89 Other pruritus (principal)
CPT/HCPCS: 80048; 80076; 84439; 85025